=== PATIENT | male | born 1960 | race Caucasian/White ===

== ENCOUNTER 2017-12-30 05:24 | Inpatient (IN) | payer OTHER ==
[2017-12-26 16:58] LABS: ERYTHROCYTE SEDIMENTATION RATE 10 mm/Hr (0-20)
[~2017-12-30 05:24] MED LIST: LACTATED RINGER'S 1,000 ML IV*
[2017-12-30] MEDS ORDERED: METOCLOPRAMIDE 10 MG INJ (06:48)
[2017-12-30] MEDS ORDERED: ROCURONIUM 50 MG INJ ×3 (06:48→08:37)
[2017-12-30] MEDS ORDERED: HYDROmorphONE 2 MG/ML SYG (06:48)
[2017-12-30] MEDS ORDERED: ONDANSETRON 4 MG INJ ×2 (06:48→10:46)
[2017-12-30] MEDS ORDERED: MIDAZOLAM 1 MG/ML 2 ML INJ (06:48)
[2017-12-30] MEDS ORDERED: PROPOFOL 20 ML ×2 (06:48→07:32)
[2017-12-30] MEDS: CEFAZOLIN 2 GM/50 ML (PMX) 50 ML IVPB (06:50)
[2017-12-30] MEDS ORDERED: FENTAnyl 50 MCG/ML VIAL ×2 (07:03→09:33)
[2017-12-30] MEDS ORDERED: hydrALAzine 20 MG INJ (07:14)
[2017-12-30] MEDS ORDERED: ACETAMINOPHEN 1000MG/100ML IV 100 ML (07:50)
[2017-12-30] MEDS: BUPIVACAINE 0.25% (MPF) 30 ML INJ (08:17)
[2017-12-30] MEDS: POLYMYXIN/BACITRACIN 1L IRRIG (08:17)
[2017-12-30 08:26] LABS: ERYTHROCYTE SEDIMENTATION RATE 5 mm/Hr (0-20)
[2017-12-30] MEDS: THROMBIN 5000 UNIT VIAL (08:38)
[2017-12-30] MEDS: GELATIN SIZE 100 SPONGE (08:38)
[2017-12-30] MEDS ORDERED: NEOSTIGMINE 3 MG/3 ML SYRINGE (09:34)
[2017-12-30] MEDS ORDERED: GLYCOPYRROLATE 0.4 MG INJ (09:34)
[2017-12-30] MEDS ORDERED: EPHEDrine SULFATE 50 MG/5 ML SYG (09:48)
[2017-12-30] MEDS ORDERED: MEPERIDINE 25 MG INJ (10:46)
[2017-12-30] MEDS: HYDROmorphONE 0.2 MG/ML PCA IV (10:59)
[2017-12-30] MEDS ORDERED: BETHANECHOL 25 MG TAB PO (11:00)
[2017-12-30] MEDS ORDERED: NACL 0.9% 3 ML SYG IV (11:00)
[2017-12-30] MEDS ORDERED: DIAZEPAM 5 MG/ML SYG IM (11:00)
[2017-12-30] MEDS ORDERED: ACETAMINOPHEN 325 MG TAB PO (11:00)
[2017-12-30] MEDS ORDERED: NALOXONE (0.4 MG/ML) INJ IV (11:00)
[2017-12-30] MEDS ORDERED: HYDROCODONE/APAP (5/325) TAB PO (11:00)
[2017-12-30] MEDS ORDERED: TRIMETHOBENZAMIDE 100 MG/ML VIAL IM (11:00)
[2017-12-30] MEDS ORDERED: ONDANSETRON 4 MG INJ IV (13:00)
[2017-12-30] MEDS ORDERED: HYDROmorphONE 1 MG/5 ML IV SYRINGE IV ×3 (13:00)
[2017-12-30] MEDS: DEXTROSE 5%-0.45% NACL 1,000 ML IV (13:11)
[2017-12-30] MEDS: CEFAZOLIN 1 GM/50 ML (PMX) 50 ML IVPB ×3 (13:12→23:47)
[2017-12-30] MEDS: ONDANSETRON 4 MG INJ IV ×2 (13:26→20:27)
[2017-12-30] MEDS ORDERED: SOD CHLORIDE 0.45% 1,000 ML IV (13:30)
[2017-12-30] MEDS ORDERED: GLUCAGON 1 MG INJ IM (14:00)
[2017-12-30] MEDS ORDERED: GLUCOSE GEL 15 GRAM TUBE BUCCAL (14:00)
[2017-12-30] MEDS ORDERED: DEXTROSE 50% 50 ML SYRINGE IV ×2 (14:00)
[2017-12-30] MEDS ORDERED: GLUCOSE GEL 15 GRAM TUBE PO ×2 (14:00)
[2017-12-30] MEDS: SOD CHLORIDE 0.45% 1,000 ML IV (14:45)
[2017-12-30] MEDS: PROCHLORPERAZINE 10 MG TAB PO (16:09)
[2017-12-30] MEDS: AL HYDROX/MG HYDROX/SIMETH 30 ML CUP PO (16:10)
[2017-12-30] MEDS: INSULIN ASPART [NOVOLOG] 3 ML PEN SC ×2 (17:45→21:00)
[2017-12-30] MEDS: RANITIDINE 150 MG TAB PO (21:24)
[2017-12-30] MEDS: ATORVASTATIN 40 MG TAB PO (21:25)
[2017-12-30] MEDS: TAMSULOSIN (SR) 0.4 MG CAP PO (21:25)
[2017-12-30] MEDS: DIAZEPAM 5 MG TAB PO (21:41)
[2017-12-30] MEDS: CEPASTAT LOZENGE MT (23:03)
[2017-12-31] MEDS: SOD CHLORIDE 0.45% 1,000 ML IV ×3 (01:19→19:22)
[2017-12-31] MEDS: HYDROmorphONE 0.2 MG/ML PCA IV (01:28)
[2017-12-31 05:05] LABS: HEMATOCRIT 38.6 % (42.0-52.0); HEMOGLOBIN 13.2 g/dl (14.0-18.0)
[2017-12-31 05:31] LABS: ANION GAP 12 (8-16); BLOOD UREA NITROGEN 8 mg/dl (7-20); CARBON DIOXIDE 28 mmol/L (21-31); CHLORIDE 104 mmol/L (97-110); CREATININE 0.67 mg/dl (0.61-1.24); GLUCOSE 125 mg/dl (70-220); POTASSIUM 3.5 mmol/L (3.5-5.1); SODIUM 140 mmol/L (135-144)
[2017-12-31] MEDS: CEFAZOLIN 1 GM/50 ML (PMX) 50 ML IVPB (06:00)
[2017-12-31] MEDS ORDERED: BETHANECHOL 25 MG TAB PO (08:00)
[2017-12-31] MEDS: DOCUSATE SODIUM 100 MG CAP PO ×2 (08:46→20:31)
[2017-12-31] MEDS: ASCORBIC ACID 500 MG TAB PO ×2 (08:46→20:31)
[2017-12-31] MEDS: FERROUS SULFATE (EC) 325 MG TAB PO ×3 (08:47→20:31)
[2017-12-31] MEDS: RANITIDINE 150 MG TAB PO ×2 (08:47→20:31)
[2017-12-31] MEDS: FINASTERIDE 5 MG TAB PO (08:47)
[2017-12-31] MEDS: LISINOPRIL 20 MG TAB PO (08:47)
[2017-12-31] MEDS: INSULIN ASPART [NOVOLOG] 3 ML PEN SC ×4 (08:52→20:35)
[2017-12-31] MEDS ORDERED: TAMSULOSIN (SR) 0.4 MG CAP PO (09:00)
[2017-12-31] MEDS: POTASSIUM CHLORIDE (SR) 10 MEQ TAB PO (10:03)
[2017-12-31] MEDS: HYDROCODONE/APAP (5/325) TAB PO ×3 (12:03→20:31)
[2017-12-31] MEDS: metFORMIN 500 MG TAB PO (18:05)
[2017-12-31] MEDS: TAMSULOSIN (SR) 0.4 MG CAP PO (20:30)
[2017-12-31] MEDS: ATORVASTATIN 40 MG TAB PO (20:30)
[2017-12-31] MEDS: ZOLPIDEM 5 MG TAB PO (23:11)
[2018-01-01] MEDS: HYDROCODONE/APAP (5/325) TAB PO ×2 (04:02→08:58)
[2018-01-01] MEDS: DIPHENHYDRAMINE 50 MG CAP PO (04:12)
[2018-01-01] MEDS: SOD CHLORIDE 0.45% 1,000 ML IV (04:54)
[2018-01-01 06:13] LABS: ALANINE AMINOTRANSFERASE 42 IU/L (13-69); ALBUMIN 4.1 g/dl (3.3-4.9); ALBUMIN/GLOBULIN RATIO 1.32; ALKALINE PHOSPHATASE 83 IU/L (42-121); ANION GAP 11 (8-16); ASPARTATE AMINO TRANSFERASE 27 IU/L (15-46); BILIRUBIN,INDIRECT 0.8 mg/dl (0-1.1); BILIRUBIN,TOTAL 0.8 mg/dl (0.2-1.3); BLOOD UREA NITROGEN 10 mg/dl (7-20); CALCIUM 8.8 mg/dl (8.4-10.2); CARBON DIOXIDE 30 mmol/L (21-31); CHLORIDE 102 mmol/L (97-110); CREATININE 0.73 mg/dl (0.61-1.24); GLUCOSE 128 mg/dl (70-220); POTASSIUM 3.8 mmol/L (3.5-5.1); SODIUM 139 mmol/L (135-144); TOTAL PROTEIN 7.2 g/dl (6.1-8.1)
[2018-01-01] MEDS: INSULIN ASPART [NOVOLOG] 3 ML PEN SC (08:50)
[2018-01-01] MEDS: LISINOPRIL 20 MG TAB PO (08:53)
[2018-01-01] MEDS: ASCORBIC ACID 500 MG TAB PO (08:53)
[2018-01-01] MEDS: metFORMIN 500 MG TAB PO (08:54)
[2018-01-01] MEDS: FERROUS SULFATE (EC) 325 MG TAB PO (08:54)
[2018-01-01] MEDS: FINASTERIDE 5 MG TAB PO (08:54)
[2018-01-01] MEDS: DOCUSATE SODIUM 100 MG CAP PO (08:54)
[2018-01-01] MEDS: RANITIDINE 150 MG TAB PO (08:54)
== END 2018-01-01 11:44 | disposition home or self-care (01) | DRG 520 ==
LOC: REC 05:24 → MS1 11:34
PROVIDERS: Orthopaedic Surgery
PROC: 0SB20ZZ Excision of Lumbar Vertebral Disc, Open Approach (ICD-10-PCS; principal; 2017-12-30 06:58)
PROC: 01NB0ZZ Release Lumbar Nerve, Open Approach (ICD-10-PCS; 2017-12-30 06:58)
DX: M51.26 Other intervertebral disc displacement, lumbar region (principal); M48.061 Spinal stenosis, lumbar region without neurogenic claudication; N40.0 Benign prostatic hyperplasia without lower urinary tract symptoms; I10 Essential (primary) hypertension; E11.9 Type 2 diabetes mellitus without complications; E78.5 Hyperlipidemia, unspecified; Z79.84 Long term (current) use of oral hypoglycemic drugs
CPT/HCPCS: 71046; 72020; 80048; 80053; 82962; 85014; 85018; 85651; 86850; 86900; 86901; 86920; 97116; 97162; 97530